=== PATIENT | female | born 1960 | race African-American/Black ===

== ENCOUNTER 2023-07-09 12:02 | Emergency (ER) | payer OTHER ==
[~2023-07-09] VITALS: Ht 165.1 cm; Wt 77.0 kg
[2023-07-09 12:08] VITALS: O2SAT 98
[2023-07-09 13:46] VITALS: BP 132/86; PULSE 86; RESP 20; TEMP 98.2
== END 2023-07-09 13:59 ==
LOC: ER 12:02
DX: S00.81XA Abrasion of other part of head, initial encounter (principal); F10.129 Alcohol abuse with intoxication, unspecified; I10 Essential (primary) hypertension; W18.39XA Other fall on same level, initial encounter; Y93.89 Activity, other specified; Y92.89 Other specified places as the place of occurrence of the external cause; Y99.8 Other external cause status
CPT/HCPCS: 81025; 99284

== ENCOUNTER 2024-05-16 05:26 | Emergency (ER) | payer OTHER ==
[~2024-05-16] VITALS: Ht 165.1 cm; Wt 87.0 kg
[2024-05-16 05:28] VITALS: BP 138/84; PULSE 69; RESP 18; TEMP 36.4; O2SAT 98
== END 2024-05-16 10:38 | disposition home or self-care (01) ==
LOC: ER 05:26
DX: R11.2 Nausea with vomiting, unspecified (principal); Z53.21 Procedure and treatment not carried out due to patient leaving prior to being seen by health care provider

== ENCOUNTER 2024-06-21 11:11 | Emergency (ER) | payer OTHER ==
[~2024-06-21] VITALS: Ht 167.6 cm; Wt 80.0 kg
[2024-06-21 11:14] VITALS: BP 159/108; PULSE 106; RESP 19; TEMP 36.2; O2SAT 98
[2024-06-21 13:15] VITALS: TEMP 97.1
[2024-06-21] MEDS: ACETAMINOPHEN 500MG TABLET PO ONE (13:15)
== END 2024-06-21 14:02 ==
LOC: ER 11:11
DX: S09.90XA Unspecified injury of head, initial encounter (principal); I10 Essential (primary) hypertension; X58.XXXA Exposure to other specified factors, initial encounter; Y93.89 Activity, other specified; Y92.89 Other specified places as the place of occurrence of the external cause; Y99.8 Other external cause status
CPT/HCPCS: 70486; 99284